=== PATIENT | male | born 1980 | race Two or more races ===

== ENCOUNTER 2024-12-19 19:52 | Emergency (ER) | payer MEDICAID ==
[~2024-12-19] VITALS: Ht 170.2 cm; Wt 85.0 kg
[2024-12-19 20:02] VITALS: O2SAT 100
[2024-12-19] MEDS: KETOROLAC 30MG/ML VIAL IM ONE (21:03)
[2024-12-19] MEDS: ACETAMINOPHEN 325MG TABLET PO ONE (21:03)
[2024-12-19] MEDS ORDERED: ACET-2708 MT (23:12)
[2024-12-19] MEDS ORDERED: NAPR-677 MT (23:12)
[2024-12-19 23:46] VITALS: BP 139/67; PULSE 54; RESP 22; TEMP 36.8; O2SAT 97
== END 2024-12-19 23:50 | disposition home or self-care (01) ==
LOC: ER 20:03
DX: S99.922A Unspecified injury of left foot, initial encounter (principal); Z79.1 Long term (current) use of non-steroidal anti-inflammatories (NSAID); X50.1XXA Overexertion from prolonged static or awkward postures, initial encounter; Y93.01 Activity, walking, marching and hiking; Y92.89 Other specified places as the place of occurrence of the external cause; Y99.8 Other external cause status
CPT/HCPCS: 73610; 73630; 29515; 96372; 99284; J1885; A6449; Z7610